=== PATIENT | female | born 1950 | race Caucasian/White ===

== ENCOUNTER → 2019-07-15 | Outpatient (CLI) | payer MEDICARE, OTHER ==
[~2019-07-15] MED LIST: AMLO-97 PO; ASPI-1005 PO; FENO160 PO; Isosorbide Mononitrate PO; LEVO50TA11 PO; LISI10TA PO; METO25 PO; ROSU20TA23 PO; TICA90TA PO
== END | disposition home or self-care (01) ==
LOC: RAH 12:51
PROVIDERS: ATTEND Urology
DX: N28.1 Cyst of kidney, acquired (principal); N28.89 Other specified disorders of kidney and ureter
CPT/HCPCS: 76770